=== PATIENT | male | born 1995 ===

== ENCOUNTER 2017-07-09 19:46 | Emergency (ER) | payer OTHER ==
[~2017-07-09] VITALS: Ht 182.9 cm; Wt 79.1 kg
[2017-07-09 19:50] VITALS: TEMP 36.7; Ht 182.9 cm; Wt 79.1 kg
--- NOTE | 2017-07-09 20:20 | EMERGENCY ROOM VISIT NOTE ---
ED Visit Note First contact with patient: 19:57 CHIEF COMPLAINT: penile lesions HISTORY OF PRESENT ILLNESS: This 21-year-old male patient presents to the emergency department, ambulatory, complaining of noticing penile lesions yesterday. The patient was in the [employer] [facility] on spring, and did have unprotected sex with 2 female partners. [place] airport [place], he noticed some small white bumps on his penis. He states they did begin to turn slightly erythematous, and he became concerned for possible STD. He states he did ask the women if they had any STDs, and was told no. He denies any pain or drainage from the lesions. He denies any penile drainage or burning with urination. He denies any significant swelling or redness. Prior to spring, the patient was sexually active with only his girlfriend over the past several months. His last STD testing was performed last summer. He states he has noticed similar lesions on the penis in the past, and was told they were not concerning by previous providers. He states yesterday there was some associated irritation with the lesions, but today he does not feel that as badly. The patient denies any chest pain, difficulty breathing, fever, chills, nausea, vomiting, abdominal pain, burning, pus, or blood with urination, or other concerning symptoms. REVIEW OF SYSTEMS: A 10 system review of systems was performed with positives and pertinent negatives listed in the history of present illness. All other systems were reviewed and are negative. ALLERGIES: None MEDICATIONS: None PMH: None SOCIAL HISTORY: The patient is a [employer] student. He lives locally with his roommate. He denies drug, tobacco use. He admits to a significant amount of alcohol use over the past week. PHYSICAL EXAM: VITALS: Vitals are noted on the nurse's note and reviewed by myself. Vital signs stable. GENERAL: This is a 21-year-old white male, in no acute distress, nondiaphoretic , well-developed well-nourished. ABDOMEN - Abdominal contour normal without pulsations or visible masses. BS normoactive all four quadrants. No tenderness to palpation appreciated. No palpable masses, hepatosplenomegaly, or ascites noted. GENITOURINARY - Circumcised male with white and some mildly erythematous, possibly vesicular penile lesions. No adhesions. No urethral discharge. No testicular tenderness to palpation appreciated bilaterally. No palpable masses. Negative blue dot sign. Pt. refused urethral swab. PSYCH - A&Ox3 and cooperates fully with examiner. Pt is very pleasant and interacts well with examiner. EMERGENCY DEPARTMENT COURSE: The patient was seen and evaluated as above. I did strongly encourage STD testing, but the patient declines. I did offer to perform a urinalysis test, the patient declines this as well. The lesions are similar in appearance to an early herpes outbreak, however the patient denies any pain, drainage, or worsening symptoms. He states the lesions do seem to have improved since yesterday. I did offer and recommend prophylactic Rocephin and azithromycin, and the patient declined despite discussion regarding risks vs. benefits. I did discuss with him the risk of STDs and spreading STDs if the patient refuses testing and is positive. He states he understands the risk , but is uncertain that he will be able to abstain from sexual activity with his girlfriend for the next 7-10 days. The patient would like to wait until tomorrow to be reevaluated at [facility] and consider STD testing at that time. While I did recommend early testing and treatment now, I feel that this plan is appropriate so long as the patient is able to abstain from sexual activity and returns if symptoms worsen overnight. Did encourage the patient to tell his girlfriend his concerns so she can get tested as well. I did have a discussion with the patient regarding safe sexual practices. I attest that I have personally reviewed the patient's current medication list. Patient was found to have normal blood pressure on screening and does not require follow-up. Differential diagnosis includes HSV, GC/Chlamydia, UTI, chancre, syphilis, HIV, chancroid, Sandra, malignancy, and others DIAGNOSIS: penile lesions Current/Historical Medications No Active Prescriptions or Reported Meds Allergies Coded Allergies: No Known Allergies (Unverified , 07/09/17) Vital Signs Date Time Temp Pulse Resp B/P (MAP) Pulse Ox O2 Delivery O2 Flow Rate FiO2 07/09/17 19:50 36.7 85 18 138/66 96 Room Air Departure Information Impression Primary Impression: Penile lesion Dispostion Home / Self-Care Condition GOOD Prescriptions No Active Prescriptions or Reported Meds Referrals No Doctor, Assigned (PCP) [facility] Patient Instructions My [facility], STD Poss Additional Instructions You were seen in the ED today for penile lesion. As discussed, the lesion appears similar to herpes lesions, however, with your history of no pain and improving symptoms in 24 hours, it is possible this is not an STD. Anytime you are sexually active with a new partner, I recommend STD testing. You should consider having this testing performed outpatient as you did refuse testing here in the ED today. No sexual activity for at least 10 days to determine if you become more symptomatic or until you obtain negative STD testing/prophylactic treatment. Seek care at [facility] or return to the ED for any pain, drainage from the penis, new lesions, fevers, burning or blood with urination, or other concerning symptoms.
[2017-07-09 20:26] VITALS: BP 116/65; PULSE 76; O2SAT 98
== END 2017-07-09 20:27 | disposition home or self-care (01) ==
LOC: C.EDB 19:47 → C.EDA 20:27
DX: N50.9 Disorder of male genital organs, unspecified (principal)